=== PATIENT | female | born 1995 | race Caucasian/White ===

== ENCOUNTER 2021-08-05 13:41 | Emergency (ER) | payer SELFPAY ==
[~2021-08-05] VITALS: Ht 165.1 cm; Wt 73.1 kg
--- NOTE | 2021-08-05 13:54 | PHYS DOC ---
General Adult EDM: Chief Complaint: ANIMAL BITE HPI: HPI: Patient is a 26 year old female who presents to the ED today to be presented after being beaten by the roommate's dog. Patient has dog bites to the right hand, left forearm and left hand and an abrasion to the left knee. Patient states the dog is up-to-date with its shots and she is up-to-date with her tetanus. I started explaining to patient the plan of care related to dog bite care. Informed that this dog bites are very tiny and do not need stitches. Other continue to explain the plan of care including cleaning and the wounds are doing x-ray she was very disruptive during conversations, she keeps talking instead of listening. Nursing staff had to ask her to keep quiet and try to listen but all in vain. (CHELLE INGRAM APRN) Review of Systems: Review of Systems: Constitutional: Denies fever or chills. [] Musculoskeletal: Denies back pain or joint pain. [] Integument: dog bites to the right hand, left forearm and left hand and an abrasion to the left knee. Neurologic: Denies headache, focal weakness or sensory changes. [] Psychiatric: Denies depression or anxiety. [] (CHELLE INGRAM MARINE STEAM FITTER HELPER) Heart Score: C/O Chest Pain: N/A Risk Factors: Risk Factors: DM, Current or recent (<one month) smoker, HTN, HLP, family history of CAD, obesity. Risk Scores: Score 0 - 3: 2.5% MACE over next 6 weeks - Discharge Home Score 4 - 6: 20.3% MACE over next 6 weeks - Admit for Clinical Observation Score 7 - 10: 72.7% MACE over next 6 weeks - Early Invasive Strategies (CHELLE INGRAM MARINE STEAM FITTER HELPER) Physical Exam: PE: Constitutional: Well developed, well nourished, no acute distress, non-toxic appearance. [] Skin: Tiny puncture wounds consistent with dog bites to the right hand, left forearm and left hand and an abrasion to the left knee. Range of motion is intact to the affected extremities, neurovascular exam is intact to affected extremities. None of this with dog bites needed stitches. Back: No tenderness, no CVA tenderness. [] Extremities: No tenderness, no cyanosis, no clubbing, ROM intact, no edema. [] Neurologic: Alert and oriented X 3, normal motor function, normal sensory function, no focal deficits noted. [] Psychologic: flat affect rude (CHELLE INGRAM APRN) EKG: EKG: [] (CHELLE INGRAM APRN) Radiology/Procedures: Radiology/Procedures: []PROCEDURE: HAND BILAT 3V Site ID: [id number] EXAMINATION: XR HAND 3 VIEWS. HISTORY: 26 years Female Reason: dog bites COMPARISON: None. FINDINGS: No fracture, dislocation or radiopaque foreign body. The joint spaces and articular surfaces appear unremarkable. IMPRESSION: Unremarkable exam. Electronically signed by: Bruce Elizabeth MD (08/05/2021 2:43 PM) [id number] DICTATED and SIGNED BY: BRUCE ELIZABETH MD DATE: 08/05/21 [id number] 0 PROCEDURE: FOREARM LEFT Site ID: [id number] EXAMINATION: XR FOREARM_LEFT 2 VIEWS. HISTORY: 26 years Female Reason: dog bites COMPARISON: None. FINDINGS: No fracture, dislocation or radiopaque foreign body. The joint spaces and articular surfaces appear unremarkable. IMPRESSION: Unremarkable exam. Electronically signed by: Bruce Elizabeth MD (08/05/2021 2:44 PM) [id number] DICTATED and SIGNED BY: BRUCE ELIZABETH MD DATE: 08/05/21 [id number] 0 (CHELLE INGRAM APRN) Course & Med Decision Making: Course & Med Decision Making Pertinent Labs and Imaging studies reviewed. (See chart for details) This is a 26-year-old female patient presenting to the ED today with dog bites to the right hand, left forearm and left hand and an abrasion to the left knee. Tetanus is up-to-date, the dog that bit her its shots are up-to-date. Paige EMT cleaned patient's wounds very well and apparently stable. She was given Augmentin and hydrocodone in the ED and discharged with the same Left forearm x-rays, bilateral hand x-rays interpreted by radiologist are negative for any acute findings. I went to give patient results. She started asking why she has pain radiating to her left clavicle which she states was previously broken. I started talking to patient and the male friend in the room, patient immediately disrupted me and said I do not want to talk to you, and requested to talk to a supervisor graphite. She states she has been to other hospitals and they did not treat her good. She continues to ramble...I walked away. Paige went to cover her wounds she refused. 152 Jair went to talk to patient and she continued to be rude and not listening please see his documentation. 152 Patient and male friend walked out of the ED patient yells "capitalism is f... joke" uses other curse languages (CHELLE INGRAM APRN) Dragon Disclaimer: Dragon Disclaimer: This electronic medical record was generated, in whole or in part, using a voice recognition dictation system. (CHELLE INGRAM APRN) Departure Departure Impression: Primary Impression: Dog bite of left hand Qualified Codes: S61.452A - Open bite of left hand, initial encounter; W54.0XXA - Bitten by dog, initial encounter Additional Impressions: Dog bite of right hand Qualified Codes: S61.451A - Open bite of right hand, initial encounter; W54.0XXA - Bitten by dog, initial encounter Dog bite of left forearm Qualified Codes: S51.852A - Open bite of left forearm, initial encounter; W54.0XXA - Bitten by dog, initial encounter Disposition: 01 HOME / SELF CARE / HOMELESS Condition: STABLE Patient Instructions: Animal Bite, [id number] Additional Instructions: You were evaluated in the emergency room for dog bites. We encourage you to wash the areas with soap and water and keep them open to air if they are not bleeding or draining. Please apply Neosporin to the affected areas twice a day for ten days. Please take the prescribed antibiotics until completed. Follow- up with your own doctor in 1 to 2 weeks Scripts Hydrocodone Bit/Acetaminophen (HYDROCODONE-APAP 5-325 ) 1 Tab Tablet 1 TAB PO PRN Q6HRS PRN for PAIN, #8 TAB 0 Refills Prov: CHELLE INGRAM APRN 08/05/21 Amoxicillin/Potassium Clav (AUGMENTIN 875-125 TABLET) 1 Each Tablet 1 TAB PO BID for 10 Days, #20 TAB 0 Refills Prov: CHELLE INGRAM APRN 08/05/21 Attending Signature I have participated in the care of this patient and I have reviewed and agree with all pertinent clinical information above including history, exam, and recommendations. (JUJU SUBRAMANIAN DO) CHELLE INGRAM APRN Aug 05, 2021 13:54 JUJU SUBRAMANIAN DO Aug 11, 2021 06:02
[2021-08-05] MEDS ORDERED: AMOXICILLIN/K CLAV 875/125MG TABLET. PO ONE (14:00)
[2021-08-05] MEDS ORDERED: HYDROcodone/APAP 5/325MG 1 TAB TABLET PO ONE (14:00)
[2021-08-05] MEDS ORDERED: NEOMY/BACITR/POLYMYXIN OINT PACKET. TP ONE (14:00)
[2021-08-05 14:22] VITALS: BP 114/55
--- NOTE | 2021-08-05 14:46 | RAD ---
Site ID: [id number] EXAMINATION: XR FOREARM_LEFT 2 VIEWS. HISTORY: 26 years Female Reason: dog bites COMPARISON: None. FINDINGS: No fracture, dislocation or radiopaque foreign body. The joint spaces and articular surfaces appea r unremarkable. IMPRESSION: Unremarkable exam. Electronically signed by: Silvano Elizabeth MD (08/05/2021 2:44 PM) [id number]
--- NOTE | 2021-08-05 14:46 | RAD ---
Site ID: [id number] EXAMINATION: XR HAND 3 VIEWS. HISTORY: 26 years Female Reason: dog bites COMPARISON: None. FINDINGS: No fracture, dislocation or radiopaque foreign body. The joint spaces and articular surfaces appea r unremarkable. IMPRESSION: Unremarkable exam. Electronically signed by: Silvano Elizabeth MD (08/05/2021 2:43 PM) [id number]
[2021-08-05] MEDS ORDERED: HYDR-2761 PO (15:15)
[2021-08-05] MEDS ORDERED: AMOX1TAB61 PO (15:15)
== END 2021-08-05 15:32 | disposition home or self-care (01) ==
LOC: ER 13:41
DX: S61.431A Puncture wound without foreign body of right hand, initial encounter (principal); S51.832A Puncture wound without foreign body of left forearm, initial encounter; S61.432A Puncture wound without foreign body of left hand, initial encounter; S80.212A Abrasion, left knee, initial encounter; W54.0XXA Bitten by dog, initial encounter; Y93.89 Activity, other specified; Y92.89 Other specified places as the place of occurrence of the external cause; Y99.8 Other external cause status
CPT/HCPCS: 73090; 81025; 99284; 73130-50